=== PATIENT | female | born 1965 | race Caucasian/White ===

== ENCOUNTER 2017-03-04 14:28 | Emergency (ER) | payer OTHER | END 2017-03-04 15:20 | disposition home or self-care (01) | LOC: ER 14:28 | DX: J06.9 Acute upper respiratory infection, unspecified (principal); Z77.22 Contact with and (suspected) exposure to environmental tobacco smoke (acute) (chronic); Z79.899 Other long term (current) drug therapy; Z90.710 Acquired absence of both cervix and uterus; Z88.6 Allergy status to analgesic agent | CPT/HCPCS: 87651 ==

== ENCOUNTER 2017-03-10 19:18 | Emergency (ER) | payer OTHER | END 2017-03-10 20:55 | disposition home or self-care (01) | LOC: ER 19:18 | DX: J40 Bronchitis, not specified as acute or chronic (principal); Z90.710 Acquired absence of both cervix and uterus; Z88.5 Allergy status to narcotic agent; Z88.6 Allergy status to analgesic agent ==

== ENCOUNTER 2017-03-23 22:22 | Emergency (ER) | payer OTHER | END 2017-03-23 23:15 | disposition home or self-care (01) | LOC: ER 22:22 | DX: L02.512 Cutaneous abscess of left hand (principal); Z90.710 Acquired absence of both cervix and uterus; Z88.5 Allergy status to narcotic agent; Z88.6 Allergy status to analgesic agent; Z23 Encounter for immunization | CPT/HCPCS: 90471 ==

== ENCOUNTER 2017-07-05 12:26 | Emergency (ER) | payer OTHER | END 2017-07-05 14:48 | disposition home or self-care (01) | LOC: ER 12:26 | PROC: 0H9GXZZ Drainage of Left Hand Skin, External Approach (ICD-10-PCS; principal; 2017-07-05) | DX: L02.512 Cutaneous abscess of left hand (principal); Z90.710 Acquired absence of both cervix and uterus; Z79.899 Other long term (current) drug therapy; Z88.5 Allergy status to narcotic agent; Z88.6 Allergy status to analgesic agent ==